=== PATIENT | female | born 1985 | race Caucasian/White ===

== ENCOUNTER 2017-05-20 09:50 | Emergency (ER) | payer MEDICAID ==
[~2017-05-20] VITALS: Ht 160 cm; Wt 86.0 kg
[~2017-05-20 09:50] MED LIST: AZIT250T PO; FLO0.4C PO; HYDR-569 PO; HYDR28CR14 TOP; IBUP-1985 PO; METH-360 PO; NAPR-1154 PO; ONDA4TAB6 PO
[2017-05-20 10:00] VITALS: BP 129/79
[2017-05-20] MEDS ORDERED: CYCL-1 PO (10:18)
== END 2017-05-20 10:46 | disposition home or self-care (01) ==
LOC: ER 09:50
DX: S16.1XXA Strain of muscle, fascia and tendon at neck level, initial encounter (principal); S39.012A Strain of muscle, fascia and tendon of lower back, initial encounter; J45.909 Unspecified asthma, uncomplicated; G89.29 Other chronic pain; Z87.442 Personal history of urinary calculi; Z88.8 Allergy status to other drugs, medicaments and biological substances; Z79.899 Other long term (current) drug therapy; Y08.89XA Assault by other specified means, initial encounter; Y93.89 Activity, other specified; Y92.89 Other specified places as the place of occurrence of the external cause; Y99.8 Other external cause status
CPT/HCPCS: 99283

== ENCOUNTER 2017-06-29 19:03 | Inpatient (IN) | payer MEDICAID ==
[~2017-06-29] VITALS: Ht 160 cm; Wt 91.0 kg
[~2017-06-29 19:03] MED LIST changes: +CYCL-1 PO
[2017-06-29 19:52] LABS: BASOPHILS % (AUTO) 0.3 % (0-1); EOSINOPHILS # (AUTO) 0.3 X10'3 (0-0.9); EOSINOPHILS % (AUTO) 1.7 % (0-6); HEMATOCRIT 40.1 % (35.0-45.0); HEMOGLOBIN 13.9 g/dl (12.0-16.0); LYMPHOCYTES % (AUTO) 5.3 % (21-51); MEAN CORPUSCULAR HEMOGLOBIN 30.7 PG (27.0-31.0); MEAN CORPUSCULAR HGB CONC 34.7 % (33.0-36.5); MEAN CORPUSCULAR VOLUME 88.3 FL (78-98); MEAN PLATELET VOLUME 8.8 FL (7.4-10.4); MONOCYTES # (AUTO) 1.3 X10'3 (0-0.9); MONOCYTES % (AUTO) 7.1 % (2-12); NEUTROPHILS # (AUTO) 15.3 X10'3 (1.8-7.7); NEUTROPHILS % (AUTO) 85.6 % (42-75); PLATELET COUNT 232 X10'3 (140-440); RED BLOOD COUNT 4.54 X10'6 (4.20-5.60); RED CELL DISTRIBUTION WIDTH 12.8 % (11.5-14.5); WHITE BLOOD COUNT 17.9 X10'3 (4.5-11.0)
[2017-06-29 19:54] LABS: CLARITY,URINE TURBID (Clear); COLOR,URINE YELLOW (Yellow); GLUCOSE, URINE NEGATIVE (Neg); KETONES,URINE NEGATIVE (Neg); LEUKOCYTE ESTERASE ,URINE LARGE (Neg); NITRITES, URINE NEGATIVE (Neg); OCCULT BLOOD,URINE SMALL (Neg); PROTEIN,URINE 30 mg/dl (Neg); UROBILINOGEN,URINE 0.2 E.U/dL (0.2-1.0)
[2017-06-29 19:56] LABS: URINE HCG NEGATIVE (NEG)
[2017-06-29 20:04] LABS: UA COLLECTION TYPE CLN CATCH MIDSTREAM
[2017-06-29 20:05] LABS: ALANINE AMINOTRANSFERASE 27 U/L (12-78); ALBUMIN 3.6 G/DL (3.4-5.0); ALBUMIN/GLOBULIN RATIO 0.9 (1.1-1.5); ALKALINE PHOSPHATASE 56 IU/L (46-116); ANION GAP 7 (8-16); ASPARTATE AMINO TRANSFERASE 12 U/L (10-37); BILIRUBIN,TOTAL 0.7 MG/DL (0.1-1.0); BLOOD UREA NITROGEN 13 MG/DL (7-18); BUN/CREATININE RATIO 14.4 (6.6-38.0); CALCIUM 8.9 MG/DL (8.5-10.1); CHLORIDE 104 MMOL/L (99-107); GLUCOSE 144 MG/DL (70-104); POTASSIUM 3.6 MMOL/L (3.5-5.1); SODIUM 140 MMOL/L (135-145); TOTAL CARBON DIOXIDE 28.7 MMOL/L (24-32); TOTAL PROTEIN 7.8 G/DL (6.4-8.2); eGFR 72 ML/MIN
[2017-06-29 20:05] LABS: BACTERIA,URINE 4+ /HPF (Neg); SQUAMOUS EPITHELIAL CELL,UR FEW /LPF (FEW); WBC,URINE TNTC /HPF (0-4)
[2017-06-29 20:11] LABS: INR 0.9 INR; PROTHROMBIN TIME 9.6 SECONDS (9.0-12.0)
[2017-06-29] MEDS ORDERED: CefTRIAXone/D5W-Rocephin 1gm 50 ML IV ONE (20:30)
[2017-06-29] MEDS ORDERED: temazepam 15mg capsule PO PRN (21:00)
[2017-06-29] MEDS ORDERED: ondansetron/PF 4mg/2ml inj IV ONE (21:50)
[2017-06-29] MEDS ORDERED: ketorolac trometh. 30mg/ml inj. IV ONE (22:35)
[2017-06-29] MEDS ORDERED: SPIR50TA3 PO (22:38)
[2017-06-29] MEDS ORDERED: potassium Cl 40MEQ/NS 500ml 500 ML IV PRN ×2 (23:45)
[2017-06-29] MEDS ORDERED: acetaminophen 325mg tablet PO PRN (23:45)
[2017-06-29] MEDS ORDERED: HYDROcodone/acetaminophen 5mg/325mg tablet PO PRN (23:45)
[2017-06-29] MEDS ORDERED: magnesium 4gm in 100ml NS 100 ML IV PRN (23:45)
[2017-06-29] MEDS ORDERED: magnesium hydroxide 30ml (MOM) UD suspension PO PRN (23:45)
[2017-06-29] MEDS ORDERED: magnesium 2GM in 50ml NS 50 ML IV PRN (23:45)
[2017-06-29] MEDS ORDERED: mag hydrox/Alum hydrox/simeth 30ml oral suspension PO PRN (23:45)
[2017-06-29] MEDS ORDERED: potassium Cl 20 mEq SR tablet PO PRN ×2 (23:45)
[2017-06-29] MEDS ORDERED: magnesium Cl slow-release 64mg tablet PO PRN (23:45)
[2017-06-29] MEDS ORDERED: ondansetron/PF 4mg/2ml inj IV PRN (23:45)
[2017-06-30] MEDS: normal saline 1000ml 1,000 ML IV SCH ×4 (00:11→23:45)
[2017-06-30] MEDS: tamsulosin 0.4mg capsule PO SCH ×2 (00:11→21:09)
[2017-06-30 00:30] VITALS: BP 101/53
[2017-06-30 05:27] LABS: HEMATOCRIT 34.4 % (35.0-45.0); HEMOGLOBIN 11.9 g/dl (12.0-16.0); MEAN CORPUSCULAR HEMOGLOBIN 30.4 PG (27.0-31.0); MEAN CORPUSCULAR HGB CONC 34.7 % (33.0-36.5); MEAN CORPUSCULAR VOLUME 87.6 FL (78-98); MEAN PLATELET VOLUME 9.3 FL (7.4-10.4); PLATELET COUNT 196 X10'3 (140-440); RED BLOOD COUNT 3.93 X10'6 (4.20-5.60); RED CELL DISTRIBUTION WIDTH 13.1 % (11.5-14.5); WHITE BLOOD COUNT 16.6 X10'3 (4.5-11.0)
[2017-06-30 06:05] LABS: ALBUMIN 2.9 G/DL (3.4-5.0); ANION GAP 11 (8-16); BLOOD UREA NITROGEN 14 MG/DL (7-18); BUN/CREATININE RATIO 15.7 (6.6-38.0); CALCIUM 8.2 MG/DL (8.5-10.1); CHLORIDE 105 MMOL/L (99-107); CREATININE 0.89 MG/DL (0.40-0.90); GLUCOSE 119 MG/DL (70-104); MAGNESIUM 1.8 MG/DL (1.5-2.4); POTASSIUM 3.7 MMOL/L (3.5-5.1); SODIUM 142 MMOL/L (135-145); TOTAL CARBON DIOXIDE 25.6 MMOL/L (24-32); eGFR 73 ML/MIN
[2017-06-30] MEDS ORDERED: pneumococcal 23-VAL P-sac vacc 25 mcg/0.5ml vial IMVAC ONE (06:30)
[2017-06-30] MEDS: K and/or MAG REPLACEMENT MC SCH (07:40)
[2017-06-30 07:42] VITALS: BP 108/63
[2017-06-30] MEDS ORDERED: CefTRIAXone/D5W-Rocephin 1gm 50 ML IV SCH (08:00)
[2017-06-30] MEDS: acetaminophen 325mg tablet PO PRN (10:06)
[2017-06-30 12:20] VITALS: BP 100/50
[2017-06-30] MEDS ORDERED: normal saline 1000ml 1,000 ML IV ONE ×2 (18:05)
[2017-06-30 19:00] VITALS: BP 110/75
[2017-06-30] MEDS: lactobacillus rhamnosus 10,000 MMU CELLS/CAPSULE PO SCH (21:09)
[2017-06-30] MEDS: HYDROcodone/acetaminophen 10/325mg tab PO PRN (21:15)
[2017-07-01] VITALS: BP 104/70
[2017-07-01] MEDS: normal saline 1000ml 1,000 ML IV SCH ×3 (05:36→23:43)
[2017-07-01] MEDS: HYDROcodone/acetaminophen 10/325mg tab PO PRN (05:36)
[2017-07-01 05:51] LABS: HEMATOCRIT 32.8 % (35.0-45.0); HEMOGLOBIN 11.2 g/dl (12.0-16.0); MEAN CORPUSCULAR HGB CONC 34.2 % (33.0-36.5); MEAN CORPUSCULAR VOLUME 87.9 FL (78-98); MEAN PLATELET VOLUME 9.2 FL (7.4-10.4); PLATELET COUNT 194 X10'3 (140-440); RED BLOOD COUNT 3.73 X10'6 (4.20-5.60); RED CELL DISTRIBUTION WIDTH 12.8 % (11.5-14.5); WHITE BLOOD COUNT 13.5 X10'3 (4.5-11.0)
[2017-07-01 06:03] LABS: ALBUMIN 2.6 G/DL (3.4-5.0); ANION GAP 8 (8-16); BLOOD UREA NITROGEN 7 MG/DL (7-18); CALCIUM 8.3 MG/DL (8.5-10.1); CHLORIDE 105 MMOL/L (99-107); CREATININE 0.78 MG/DL (0.40-0.90); GLUCOSE 117 MG/DL (70-104); MAGNESIUM 1.8 MG/DL (1.5-2.4); POTASSIUM 3.7 MMOL/L (3.5-5.1); SODIUM 138 MMOL/L (135-145); TOTAL CARBON DIOXIDE 25.1 MMOL/L (24-32); eGFR 85 ML/MIN
[2017-07-01 07:19] VITALS: BP 108/74
[2017-07-01] MEDS: K and/or MAG REPLACEMENT MC SCH (08:00)
[2017-07-01] MEDS: lactobacillus rhamnosus 10,000 MMU CELLS/CAPSULE PO SCH ×2 (08:26→20:40)
[2017-07-01] MEDS: acetaminophen 325mg tablet PO PRN (08:31)
[2017-07-01] MEDS ORDERED: butalbital/acetaminophen/caffeine (Fioricet) tablet PO PRN (12:20)
[2017-07-01 12:56] VITALS: BP 103/65
[2017-07-01 19:00] VITALS: BP 102/65
[2017-07-01] MEDS: tamsulosin 0.4mg capsule PO SCH (20:40)
[2017-07-02] VITALS: BP 116/66
[2017-07-02 05:40] LABS: BASOPHILS % (AUTO) 0.3 % (0-1); EOSINOPHILS # (AUTO) 0.2 X10'3 (0-0.9); EOSINOPHILS % (AUTO) 2.2 % (0-6); HEMATOCRIT 31.7 % (35.0-45.0); HEMOGLOBIN 10.9 g/dl (12.0-16.0); LYMPHOCYTES # (AUTO) 2.1 X10'3 (1.1-4.8); LYMPHOCYTES % (AUTO) 24.9 % (21-51); MEAN CORPUSCULAR HEMOGLOBIN 30.2 PG (27.0-31.0); MEAN CORPUSCULAR HGB CONC 34.3 % (33.0-36.5); MEAN CORPUSCULAR VOLUME 88.2 FL (78-98); MEAN PLATELET VOLUME 8.9 FL (7.4-10.4); MONOCYTES % (AUTO) 11.8 % (2-12); NEUTROPHILS # (AUTO) 5.2 X10'3 (1.8-7.7); NEUTROPHILS % (AUTO) 60.8 % (42-75); PLATELET COUNT 211 X10'3 (140-440); RED BLOOD COUNT 3.59 X10'6 (4.20-5.60); RED CELL DISTRIBUTION WIDTH 12.9 % (11.5-14.5); WHITE BLOOD COUNT 8.6 X10'3 (4.5-11.0)
[2017-07-02 06:16] LABS: ALBUMIN 2.5 G/DL (3.4-5.0); ANION GAP 7 (8-16); BLOOD UREA NITROGEN 6 MG/DL (7-18); BUN/CREATININE RATIO 8.3 (6.6-38.0); CALCIUM 8.1 MG/DL (8.5-10.1); CHLORIDE 106 MMOL/L (99-107); CREATININE 0.72 MG/DL (0.40-0.90); GLUCOSE 88 MG/DL (70-104); POTASSIUM 3.9 MMOL/L (3.5-5.1); SODIUM 139 MMOL/L (135-145); TOTAL CARBON DIOXIDE 26.4 MMOL/L (24-32); eGFR > 90 ML/MIN
[2017-07-02 07:32] VITALS: BP 110/62
[2017-07-02] MEDS ORDERED: levoFLOXACIN-Levaquin 750MG/D5 150 ML IV SCH (08:00)
[2017-07-02] MEDS: K and/or MAG REPLACEMENT MC SCH (08:00)
[2017-07-02] MEDS: normal saline 1000ml 1,000 ML IV SCH ×2 (08:28→15:45)
[2017-07-02] MEDS: lactobacillus rhamnosus 10,000 MMU CELLS/CAPSULE PO SCH (08:28)
[2017-07-02] MEDS ORDERED: levoFLOXACIN 250mg tablet PO SCH (11:00)
[2017-07-02 11:30] VITALS: BP 107/71
[2017-07-02] MEDS ORDERED: TAMS0.4C32 PO (16:55)
[2017-07-02] MEDS ORDERED: CIPR-230 PO (16:55)
== END 2017-07-02 17:52 | disposition home or self-care (01) | DRG 463 ==
LOC: ER 19:04 → ED HOLD 23:45 → SUR 3N 23:55
PROVIDERS: ADMIT Family Medicine; ATTEND Family Medicine
DX: N13.6 Pyonephrosis (principal); K76.0 Fatty (change of) liver, not elsewhere classified; E28.2 Polycystic ovarian syndrome; E66.9 Obesity, unspecified; J45.909 Unspecified asthma, uncomplicated; G89.29 Other chronic pain; B96.20 Unspecified Escherichia coli [E. coli] as the cause of diseases classified elsewhere; M54.9 Dorsalgia, unspecified; R00.0 Tachycardia, unspecified; Z68.35 Body mass index [BMI] 35.0-35.9, adult; Z72.0 Tobacco use; Z82.0 Family history of epilepsy and other diseases of the nervous system; Z87.442 Personal history of urinary calculi; Z23 Encounter for immunization
CPT/HCPCS: 36415; 74176; 80048; 80053; 81001; 81025; 83735; 84443; 85025; 85027; 85610; 87070; 87077; 87088; 87186; 90732; 96365; 96375; 99285; J0696; J1885; J2405; J2543; J7030

== ENCOUNTER 2017-09-28 14:07 | Emergency (ER) | payer MEDICAID ==
[~2017-09-28] VITALS: Ht 160 cm; Wt 96.3 kg
[~2017-09-28 14:07] MED LIST changes: -AZIT250T PO; -CYCL-1 PO; -FLO0.4C PO; -HYDR-569 PO; -HYDR28CR14 TOP; -IBUP-1985 PO; -METH-360 PO; -NAPR-1154 PO; -ONDA4TAB6 PO; +SPIR50TA5 PO; +TAMS0.4C32 PO
[2017-09-28] MEDS ORDERED: DIPH1TAB PO (15:16)
[2017-09-28 15:59] VITALS: BP 124/89
== END 2017-09-28 16:01 | disposition home or self-care (01) ==
LOC: ER 14:08
DX: R19.7 Diarrhea, unspecified (principal); R10.84 Generalized abdominal pain; J45.909 Unspecified asthma, uncomplicated; G89.29 Other chronic pain; Z87.442 Personal history of urinary calculi
CPT/HCPCS: 99283

== ENCOUNTER 2017-11-06 12:54 | Emergency (ER) | payer MEDICAID, OTHER ==
[~2017-11-06] VITALS: Ht 160 cm; Wt 97.7 kg
[~2017-11-06 12:54] MED LIST changes: +DIPH1TAB PO
[2017-11-06] MEDS ORDERED: ketorolac trometh. 30mg/ml inj. IV ONE (13:05)
[2017-11-06] MEDS ORDERED: ondansetron/PF 4mg/2ml inj IV ONE (13:05)
[2017-11-06] MEDS ORDERED: normal saline 1000ML IV soln IVB ONE (13:05)
[2017-11-06 13:38] LABS: ALANINE AMINOTRANSFERASE 27 U/L (12-78); ALKALINE PHOSPHATASE 57 IU/L (46-116); ANION GAP 10 (8-16); ASPARTATE AMINO TRANSFERASE 18 U/L (10-37); BILIRUBIN,TOTAL 0.3 MG/DL (0.1-1.0); BLOOD UREA NITROGEN 16 MG/DL (7-18); BUN/CREATININE RATIO 17.4 (6.6-38.0); CALCIUM 9.2 MG/DL (8.5-10.1); CHLORIDE 101 MMOL/L (99-107); CREATININE 0.92 MG/DL (0.40-0.90); GLUCOSE 89 MG/DL (70-104); LIPASE 245 U/L (73-393); POTASSIUM 3.8 MMOL/L (3.5-5.1); SODIUM 142 MMOL/L (135-145); TOTAL CARBON DIOXIDE 30.7 MMOL/L (24-32); TOTAL PROTEIN 7.9 G/DL (6.4-8.2); eGFR 70 ML/MIN
[2017-11-06 13:42] LABS: HEMATOCRIT 38.3 % (35.0-45.0); HEMOGLOBIN 12.8 g/dl (12.0-16.0); LYMPHOCYTES % (AUTO) 32.4 % (21-51); MEAN CORPUSCULAR HGB CONC 33.5 % (33.0-36.5); MEAN CORPUSCULAR VOLUME 89.8 FL (78-98); MEAN PLATELET VOLUME 8.8 FL (7.4-10.4); NEUTROPHILS % (AUTO) 53.7 % (42-75); PLATELET COUNT 325 X10'3 (140-440); RED BLOOD COUNT 4.26 X10'6 (4.20-5.60); RED CELL DISTRIBUTION WIDTH 12.2 % (11.5-14.5); WHITE BLOOD COUNT 6.7 X10'3 (4.5-11.0)
[2017-11-06 13:43] LABS: BASOPHILS % (AUTO) 0.5 % (0-1); EOSINOPHILS # (AUTO) 0.2 X10'3 (0-0.9); EOSINOPHILS % (AUTO) 3 % (0-6); LYMPHOCYTES # (AUTO) 2.2 X10'3 (1.1-4.8); MONOCYTES # (AUTO) 0.7 X10'3 (0-0.9); MONOCYTES % (AUTO) 10.4 % (2-12); NEUTROPHILS # (AUTO) 3.6 X10'3 (1.8-7.7)
[2017-11-06 13:54] LABS: CLARITY,URINE CLEAR (Clear); COLOR,URINE YELLOW (Yellow); GLUCOSE, URINE NEGATIVE (Neg); KETONES,URINE NEGATIVE (Neg); LEUKOCYTE ESTERASE ,URINE NEGATIVE (Neg); NITRITES, URINE NEGATIVE (Neg); OCCULT BLOOD,URINE NEGATIVE (Neg); PROTEIN,URINE NEGATIVE (Neg); UROBILINOGEN,URINE 0.2 E.U/dL (0.2-1.0)
[2017-11-06 13:59] LABS: UA COLLECTION TYPE VOIDED
[2017-11-06 14:02] LABS: URINE HCG NEGATIVE (NEG)
[2017-11-06] MEDS ORDERED: HYDR-569 PO (15:57)
[2017-11-06] MEDS ORDERED: IBUP-1986 PO (15:57)
[2017-11-06 16:40] VITALS: BP 154/86
== END 2017-11-06 16:42 | disposition home or self-care (01) ==
LOC: ER 12:55
DX: R10.2 Pelvic and perineal pain (principal); J45.909 Unspecified asthma, uncomplicated; G89.29 Other chronic pain; Z88.5 Allergy status to narcotic agent; Z79.899 Other long term (current) drug therapy
CPT/HCPCS: 36415; 76856; 80053; 81003; 81025; 83690; 85025; 96361; 96374; 96375; 99285; J1885; J2405; J7030

== ENCOUNTER 2018-08-14 02:02 | Emergency (ER) | payer MEDICAID, OTHER ==
[~2018-08-14] VITALS: Ht 160 cm; Wt 104.0 kg
[~2018-08-14 02:02] MED LIST changes: +HYDR-4383 PO; +IBUP-1986 PO
--- NOTE | 2018-08-14 02:17 | NUR ---
Patient sitting on gurney, reports left jaw pain 8/10. I will continue to monitor.
[2018-08-14] MEDS ORDERED: ketorolac trometh inj. 60 MG/2 ML VIAL IM ONE (03:20)
[2018-08-14] MEDS ORDERED: DOXY100C43 PO (03:21)
[2018-08-14 03:47] VITALS: BP 123/90
== END 2018-08-14 03:47 | disposition home or self-care (01) ==
LOC: ER 02:03
DX: K08.89 Other specified disorders of teeth and supporting structures (principal); G43.909 Migraine, unspecified, not intractable, without status migrainosus; J45.909 Unspecified asthma, uncomplicated; G89.29 Other chronic pain; Z88.6 Allergy status to analgesic agent; Z79.899 Other long term (current) drug therapy
CPT/HCPCS: 96372; 99283; J1885

== ENCOUNTER 2018-11-02 16:22 | Emergency (ER) | payer MEDICAID ==
[~2018-11-02] VITALS: Ht 160 cm; Wt 100.9 kg
[2018-11-02 17:51] VITALS: BP 126/82
== END 2018-11-02 17:54 | disposition home or self-care (01) ==
LOC: ER 16:23
DX: G43.909 Migraine, unspecified, not intractable, without status migrainosus (principal); Z20.811 Contact with and (suspected) exposure to meningococcus; J45.909 Unspecified asthma, uncomplicated; G89.29 Other chronic pain; Z87.442 Personal history of urinary calculi; Z88.6 Allergy status to analgesic agent; Z79.899 Other long term (current) drug therapy
CPT/HCPCS: 99281

== ENCOUNTER 2019-05-09 00:43 | Emergency (ER) | payer MEDICAID, OTHER ==
[~2019-05-09] VITALS: Ht 160 cm; Wt 97.0 kg
[2019-05-09] MEDS ORDERED: normal saline 1000ML IV soln IVB ONE (00:55)
[2019-05-09] MEDS ORDERED: ondansetron/PF 4mg/2ml inj IV ONE (00:55)
[2019-05-09] MEDS ORDERED: ketorolac trometh. 30mg/ml inj. IV ONE (00:55)
[2019-05-09 01:21] LABS: CLARITY,URINE CLEAR (Clear); COLOR,URINE YELLOW (Yellow); GLUCOSE, URINE NEGATIVE (Neg); KETONES,URINE NEGATIVE (Neg); LEUKOCYTE ESTERASE ,URINE NEGATIVE (Neg); NITRITES, URINE NEGATIVE (Neg); OCCULT BLOOD,URINE NEGATIVE (Neg); PROTEIN,URINE NEGATIVE (Neg); URINE HCG NEGATIVE (NEG); UROBILINOGEN,URINE 0.2 E.U/dL (0.2-1.0)
[2019-05-09 01:21] LABS: RED BLOOD COUNT 5.01 X10'6 (4.20-5.60)
[2019-05-09 01:23] LABS: HEMATOCRIT 45.7 % (35.0-45.0); HEMOGLOBIN 15.3 g/dl (12.0-16.0); MEAN CORPUSCULAR HEMOGLOBIN 30.6 PG (27.0-31.0); MEAN CORPUSCULAR HGB CONC 33.6 g/dL (33.0-36.5); MEAN CORPUSCULAR VOLUME 91.1 FL (78-98); MEAN PLATELET VOLUME 9.4 FL (7.4-10.4); PLATELET COUNT 244 X10'3 (140-440); RED CELL DISTRIBUTION WIDTH 13.3 % (11.5-14.5); WHITE BLOOD COUNT 9.8 X10'3 (4.5-11.0)
[2019-05-09 01:26] LABS: UA COLLECTION TYPE CLN CATCH MIDSTREAM
[2019-05-09 01:36] LABS: ALANINE AMINOTRANSFERASE 40 U/L (12-78); ALBUMIN 4.2 G/DL (3.4-5.0); ALKALINE PHOSPHATASE 65 IU/L (46-116); ANION GAP 6 (8-16); ASPARTATE AMINO TRANSFERASE 22 U/L (10-37); BILIRUBIN,TOTAL 0.3 MG/DL (0.1-1.0); BLOOD UREA NITROGEN 14 MG/DL (7-18); BUN/CREATININE RATIO 14.3 (6.6-38.0); CALCIUM 8.8 MG/DL (8.5-10.1); CHLORIDE 106 MMOL/L (99-107); CREATININE 0.98 MG/DL (0.40-0.90); GLUCOSE 113 MG/DL (70-104); LIPASE 310 U/L (73-393); POTASSIUM 3.8 MMOL/L (3.5-5.1); SODIUM 143 MMOL/L (135-145); TOTAL CARBON DIOXIDE 31.3 MMOL/L (24-32); TOTAL PROTEIN 8.3 G/DL (6.4-8.2); eGFR 65 ML/MIN
[2019-05-09 01:48] LABS: TOTAL CELLS COUNTED 100
[2019-05-09 01:50] LABS: PLATELET ESTIMATE NORMAL
[2019-05-09 02:57] VITALS: BP 113/72
[2019-05-09] MEDS ORDERED: ACET-3067 PO (02:58)
[2019-05-09] MEDS ORDERED: ONDA8TAB13 PO (02:58)
[2019-05-09] MEDS ORDERED: PANT-47 PO (02:58)
[2019-05-09] MEDS ORDERED: acetaminophen 325mg tablet PO ONE (03:00)
== END 2019-05-09 03:06 | disposition home or self-care (01) ==
LOC: ER 00:43
DX: K80.20 Calculus of gallbladder without cholecystitis without obstruction (principal); R11.2 Nausea with vomiting, unspecified; J45.909 Unspecified asthma, uncomplicated; G89.29 Other chronic pain; F17.200 Nicotine dependence, unspecified, uncomplicated; Z88.5 Allergy status to narcotic agent; Z79.899 Other long term (current) drug therapy
CPT/HCPCS: 36415; 74176; 80053; 81003; 81025; 83690; 85025; 96361; 96374; 96375; 99284; J1885; J2405; J7030

== ENCOUNTER 2020-04-27 08:42 | Emergency (ER) | payer MEDICAID ==
[~2020-04-27] VITALS: Ht 160 cm; Wt 108.7 kg
[~2020-04-27 08:42] MED LIST changes: +ONDA8TAB13 PO; +PANT-47 PO
[2020-04-27 09:28] VITALS: BP 130/88
== END 2020-04-27 11:44 | disposition home or self-care (01) ==
LOC: ER 08:43
DX: J06.9 Acute upper respiratory infection, unspecified (principal); J02.9 Acute pharyngitis, unspecified; R05 Cough; G43.909 Migraine, unspecified, not intractable, without status migrainosus; J45.909 Unspecified asthma, uncomplicated; G89.29 Other chronic pain; F17.200 Nicotine dependence, unspecified, uncomplicated; Z87.442 Personal history of urinary calculi; Z88.6 Allergy status to analgesic agent; Z79.899 Other long term (current) drug therapy
CPT/HCPCS: 87081; 87880; 99283

== ENCOUNTER 2020-07-07 12:36 | Emergency (ER) | payer MEDICAID, OTHER ==
[~2020-07-07] VITALS: Ht 160 cm; Wt 106.0 kg
[2020-07-07 13:30] VITALS: BP 122/90
[2020-07-07] MEDS ORDERED: acetaminophen 325mg tablet PO ONE (16:00)
[2020-07-07] MEDS ORDERED: ALBU8HFA PO (16:47)
[2020-07-07] MEDS ORDERED: PRED20TA PO (16:47)
== END 2020-07-07 19:18 | disposition home or self-care (01) ==
LOC: ER 12:36
DX: J45.909 Unspecified asthma, uncomplicated (principal); Z20.822 Contact with and (suspected) exposure to COVID-19; R05 Cough; R06.02 Shortness of breath; G43.909 Migraine, unspecified, not intractable, without status migrainosus; G89.29 Other chronic pain; Z87.442 Personal history of urinary calculi; Z88.6 Allergy status to analgesic agent; Z79.899 Other long term (current) drug therapy
CPT/HCPCS: 87635; 99283; C9803

== ENCOUNTER 2021-05-29 20:04 | Inpatient (IN) | payer OTHER ==
[~2021-05-29] VITALS: Ht 160 cm; Wt 113.6 kg
[2021-05-29 20:42] LABS: BASOPHILS % (AUTO) 0.3 % (0-1); EOSINOPHILS # (AUTO) 0.4 X10'3 (0-0.9); EOSINOPHILS % (AUTO) 3.9 % (0-6); HEMATOCRIT 42.7 % (35.0-45.0); HEMOGLOBIN 14.6 g/dl (12.0-16.0); LYMPHOCYTES # (AUTO) 3.4 X10'3 (1.1-4.8); LYMPHOCYTES % (AUTO) 37.6 % (21-51); MEAN CORPUSCULAR HEMOGLOBIN 30.3 PG (27.0-31.0); MEAN CORPUSCULAR HGB CONC 34.2 g/dL (33.0-36.5); MEAN CORPUSCULAR VOLUME 88.4 FL (78-98); MEAN PLATELET VOLUME 9.5 FL (7.4-10.4); MONOCYTES # (AUTO) 0.8 X10'3 (0-0.9); MONOCYTES % (AUTO) 9.2 % (2-12); NEUTROPHILS # (AUTO) 4.5 X10'3 (1.8-7.7); PLATELET COUNT 263 X10'3 (140-440); RED BLOOD COUNT 4.83 X10'6 (4.20-5.60); RED CELL DISTRIBUTION WIDTH 13.6 % (11.5-14.5); WHITE BLOOD COUNT 9.1 X10'3 (4.5-11.0)
[2021-05-29 20:50] LABS: ALANINE AMINOTRANSFERASE 76 U/L (12-78); ALKALINE PHOSPHATASE 69 IU/L (46-116); ANION GAP 9 (8-16); ASPARTATE AMINO TRANSFERASE 26 U/L (10-37); BILIRUBIN,TOTAL 0.3 MG/DL (0.1-1.0); BLOOD UREA NITROGEN 11 MG/DL (7-18); BUN/CREATININE RATIO 12.8 (6.6-38.0); CALCIUM 8.6 MG/DL (8.5-10.1); CHLORIDE 102 MMOL/L (99-107); CREATININE 0.86 MG/DL (0.40-0.90); GLUCOSE 121 MG/DL (70-104); POTASSIUM 3.4 MMOL/L (3.5-5.1); SODIUM 140 MMOL/L (135-145); TOTAL CARBON DIOXIDE 29.2 MMOL/L (24-32); TOTAL PROTEIN 7.9 G/DL (6.4-8.2); eGFR 74 ML/MIN
[2021-05-29 20:54] LABS: LIPASE 291 U/L (73-393)
[2021-05-29 22:06] LABS: URINE HCG NEGATIVE (NEG)
[2021-05-29 22:29] LABS: CLARITY,URINE SLIGHTLY CLOUDY (Clear); COLOR,URINE YELLOW (Yellow); GLUCOSE, URINE NEGATIVE (Neg); KETONES,URINE NEGATIVE (Neg); LEUKOCYTE ESTERASE ,URINE NEGATIVE (Neg); NITRITES, URINE NEGATIVE (Neg); OCCULT BLOOD,URINE NEGATIVE (Neg); PROTEIN,URINE NEGATIVE (Neg); UROBILINOGEN,URINE 0.2 E.U/dL (0.2-1.0)
[2021-05-29 22:32] LABS: UA COLLECTION TYPE VOIDED
[2021-05-29 22:44] LABS: WBC,URINE 0-4 /HPF (0-4)
[2021-05-29 22:45] LABS: BACTERIA,URINE NONE SEEN /HPF (Neg); CAL OXALATE CRYSTALS 3+ /HPF (NEGATIVE); MUCUS STRANDS NONE SEEN /LPF (Neg); RBC,URINE NONE SEEN /HPF (0-2); SQUAMOUS EPITHELIAL CELL,UR FEW /LPF (FEW)
[2021-05-29] MEDS ORDERED: normal saline 1000ML IV soln IVB ONE (23:10)
[2021-05-29] MEDS ORDERED: famotidine/PF 10 mg/ml inj IV ONE (23:10)
[2021-05-29] MEDS ORDERED: ondansetron/PF 4mg/2ml inj IV ONE (23:10)
[2021-05-30] MEDS: proCHLORperazine 10 MG/2 ml inj IV PRN ×2 (00:33→06:03)
[2021-05-30] MEDS ORDERED: fentaNYL/PF 50MCG/1 ML 2ML syringe IV ONE (00:45)
[2021-05-30] MEDS ORDERED: piperacillin/tazo 4.5gm/100ml 100 ML IV ONE (00:50)
--- NOTE | 2021-05-30 00:53 | NUR ---
HOSPITALIST WAS CONTACTED AT 00:54.
[2021-05-30] MEDS ORDERED: magnesium Cl slow-release 64mg tablet PO PRN (01:15)
[2021-05-30] MEDS ORDERED: mag hydrox/Alum hydrox/simeth 30ml oral suspension PO PRN (01:15)
[2021-05-30] MEDS ORDERED: ondansetron/PF 4mg/2ml inj IV PRN (01:15)
[2021-05-30] MEDS ORDERED: potassium CL 10mEq/100ml bag 100 ML IV PRN (01:15)
[2021-05-30] MEDS ORDERED: acetaminophen 325mg tablet PO PRN ×2 (01:15)
[2021-05-30] MEDS: normal saline 1000ml 1,000 ML IV SCH ×3 (01:15→17:02)
[2021-05-30] MEDS ORDERED: morphine 2 MG/ML inj. syringe IV PRN (01:15)
[2021-05-30] MEDS ORDERED: magnesium 4gm in 100ml NS 100 ML IV PRN (01:15)
[2021-05-30] MEDS ORDERED: HYDROcodone/acetaminophen 5mg/325mg tablet PO PRN (01:15)
[2021-05-30] MEDS ORDERED: magnesium 2GM in 50ml NS 50 ML IV PRN (01:15)
[2021-05-30] MEDS ORDERED: HYDROcodone/acetaminophen 10/325mg tab PO PRN (01:15)
[2021-05-30] MEDS ORDERED: potassium Cl 20 mEq SR tablet PO PRN (01:15)
[2021-05-30] MEDS ORDERED: magnesium hydroxide 30ml (MOM) UD suspension PO PRN (01:15)
[2021-05-30] MEDS ORDERED: iohexol 300mg/ml 100ml inj. ONE (01:23)
[2021-05-30] MEDS: morphine 2 MG/ML inj. syringe IV PRN ×3 (03:05→17:00)
[2021-05-30] MEDS ORDERED: NO HOME MEDS (03:25)
[2021-05-30] MEDS: heparin, porcine 5000 units/ml vial SQ SCH ×2 (08:00→20:00)
[2021-05-30] MEDS: K and/or MAG REPLACEMENT MC SCH (08:00)
[2021-05-30 08:15] VITALS: BP 139/95
[2021-05-30 09:58] LABS: POTASSIUM 3.6 MMOL/L (3.5-5.1)
[2021-05-30 10:00] VITALS: BP 133/88
[2021-05-30] MEDS ORDERED: NORMAL SALINE IV ONE (15:55)
[2021-05-30] MEDS ORDERED: SINCALIDE IV ONE (15:55)
[2021-05-30] MEDS: pantoprazole 40MG/NS 100ML BAG 100 ML IV SCH ×2 (17:41→23:51)
[2021-05-30 18:00] VITALS: BP 155/86
--- NOTE | 2021-05-30 18:42 | NUR ---
Problems reprioritized. Patient report given, questions answered & plan of care reviewed with SMITA Suárez.
[2021-05-30] MEDS ORDERED: temazepam 15mg capsule PO PRN (21:00)
[2021-05-30 22:00] VITALS: BP 125/69
[2021-05-31] VITALS (21 sets, daily range): BP systolic 106–164; BP diastolic 54–105
[2021-05-31 06:59] LABS: BASOPHILS % (AUTO) 0.4 % (0-1); EOSINOPHILS # (AUTO) 0.2 X10'3 (0-0.9); EOSINOPHILS % (AUTO) 2.2 % (0-6); HEMATOCRIT 41.1 % (35.0-45.0); HEMOGLOBIN 13.8 g/dl (12.0-16.0); LYMPHOCYTES % (AUTO) 21.1 % (21-51); MEAN CORPUSCULAR HEMOGLOBIN 29.5 PG (27.0-31.0); MEAN CORPUSCULAR HGB CONC 33.5 g/dL (33.0-36.5); MEAN CORPUSCULAR VOLUME 87.9 FL (78-98); MEAN PLATELET VOLUME 9.6 FL (7.4-10.4); MONOCYTES % (AUTO) 10.2 % (2-12); NEUTROPHILS # (AUTO) 6.3 X10'3 (1.8-7.7); NEUTROPHILS % (AUTO) 66.1 % (42-75); PLATELET COUNT 225 X10'3 (140-440); RED BLOOD COUNT 4.68 X10'6 (4.20-5.60); RED CELL DISTRIBUTION WIDTH 13.6 % (11.5-14.5); WHITE BLOOD COUNT 9.5 X10'3 (4.5-11.0)
--- NOTE | 2021-05-31 07:06 | NUR ---
Problems reprioritized. Patient report given, questions answered & plan of care reviewed with EBONY ORDOÑEZ.
--- NOTE | 2021-05-31 07:09 | NUR ---
Patient in room ORTHO 4014. I have received report from Kamini ORDOÑEZ and had the opportunity to ask questions and assume patient care.
[2021-05-31 07:21] LABS: ALANINE AMINOTRANSFERASE 70 U/L (12-78); ALBUMIN 3.5 G/DL (3.4-5.0); ALKALINE PHOSPHATASE 58 IU/L (46-116); ANION GAP 9 (8-16); ASPARTATE AMINO TRANSFERASE 32 U/L (10-37); BILIRUBIN,TOTAL 0.8 MG/DL (0.1-1.0); BLOOD UREA NITROGEN 7 MG/DL (7-18); CALCIUM 7.7 MG/DL (8.5-10.1); CHLORIDE 104 MMOL/L (99-107); CREATININE 0.78 MG/DL (0.40-0.90); GLUCOSE 110 MG/DL (70-104); POTASSIUM 3.3 MMOL/L (3.5-5.1); SODIUM 141 MMOL/L (135-145); TOTAL CARBON DIOXIDE 27.8 MMOL/L (24-32); TOTAL PROTEIN 7.1 G/DL (6.4-8.2); eGFR 83 ML/MIN
[2021-05-31] MEDS: K and/or MAG REPLACEMENT MC SCH ×2 (08:00→20:00)
[2021-05-31] MEDS: heparin, porcine 5000 units/ml vial SQ SCH ×2 (08:00→20:00)
[2021-05-31] MEDS: normal saline 1000ml 1,000 ML IV SCH ×3 (09:15→16:39)
[2021-05-31] MEDS: pantoprazole 40MG/NS 100ML BAG 100 ML IV SCH ×2 (10:15→20:00)
[2021-05-31 11:13] LABS: MAGNESIUM 2.1 MG/DL (1.5-2.4)
[2021-05-31] MEDS: potassium Cl 20 mEq SR tablet PO PRN ×2 (12:04→16:38)
[2021-05-31] MEDS: piperacillin/tazo 4.5gm/100ml 100 ML IV SCH (16:15)
[2021-05-31] MEDS ORDERED: INDOCYANINE GREEN 25 MG/10 ML VIAL IV ONE (17:40)
--- NOTE | 2021-05-31 18:00 | NUR ---
Patient report called to Tiny in OR. BG 77, 2 pieces of jewlery cant be removed. Also, Patient wants MD to be aware family states they have a history of women in family have stopped breathing in surgery. Dr Pierce aware please pass on to anesthsiologist.
[2021-05-31] MEDS ORDERED: BUPIVAcaine 0.5% inj/PF 30 ML ONE (18:07)
--- NOTE | 2021-05-31 18:30 | NUR ---
Patient in room ORTHO 4014. I have received report from PARDEEP and had the opportunity to ask questions and assume patient care. PT DOWN TO OR
--- NOTE | 2021-05-31 18:33 | NUR ---
Problems reprioritized. Patient report given, questions answered & plan of care reviewed with Argelia ORDOÑEZ.
[2021-05-31] MEDS ORDERED: ringers solution, lacted 1,000 ML IV SCH (18:45)
[2021-05-31] MEDS ORDERED: proCHLORperazine 10 MG/2 ml inj IV PRN (18:45)
[2021-05-31] MEDS ORDERED: morphine 4 MG/ML inj SYRINge IV PRN ×2 (18:45→20:30)
[2021-05-31] MEDS ORDERED: ondansetron/PF 4mg/2ml inj IV PRN (18:45)
[2021-05-31] MEDS ORDERED: meperidine/PF 25mg/ml syringe IV PRN ×3 (18:45)
[2021-05-31] MEDS ORDERED: morphine 2 MG/ML inj. syringe IV PRN (18:45)
[2021-05-31] MEDS ORDERED: fentaNYL/PF 50MCG/1 ML 2ML syringe ONE ×2 (18:48→18:57)
[2021-05-31] MEDS ORDERED: midazolam 1 mg/ML 2ml injection ONE (18:48)
[2021-05-31] MEDS ORDERED: BUPIVAcaine 0.5% inj/PF 30 ml vial IJ ONE (19:36)
[2021-05-31] MEDS ORDERED: HYDROcodone/acetaminophen 5mg/325mg tablet PO PRN (20:30)
[2021-05-31] MEDS ORDERED: naloxone 0.4 mg/ml inj IV PRN (20:30)
[2021-05-31] MEDS ORDERED: sugammadex 200mg/2ml injection IV ONE (20:35)
[2021-05-31] MEDS ORDERED: ipratropium/albuterol 3ml nebule NEB STA (20:42)
--- NOTE | 2021-05-31 20:45 | NUR ---
PT ARRIVED TO RR VIA BED ACCOMPANIED BY DR LAST, ANESTHESIA REPORT GIVEN, VSS, DR JOSEPH FUCHS TX-RT PAGED, PT STILL SLEEPY, DENIES PAIN, LAP SITES X 5 - CDI, SCDS ON, 20G PIV'S X 2 TO BILAT UE, RIGHT ONE BEING USED TO INFUSE LR CURRENTLY.
[2021-05-31] MEDS ORDERED: propofol inj 20 ML IV ONE (21:00)
[2021-05-31] MEDS ORDERED: glycopyrrolate 0.2mg/ml inj ONE (21:00)
[2021-05-31] MEDS ORDERED: rocuronium 10mg/ml inj IV ONE (21:00)
[2021-05-31] MEDS ORDERED: dexamethasone sod phosphate 4mg/ml inj. ONE (21:00)
[2021-05-31] MEDS ORDERED: LIDOcaine 2% (20mg/ml) 5ml vial ONE (21:00)
[2021-05-31] MEDS ORDERED: albuterol 60 PUFF/8GM Inhaler IH ONE (21:00)
[2021-05-31] MEDS ORDERED: neostigmine methylsulfate 1 MG/ML 10ml vial ONE (21:00)
[2021-05-31] MEDS ORDERED: ondansetron/PF 4mg/2ml inj ONE (21:00)
[2021-05-31] MEDS ORDERED: phenylephrine 10mg/ml inj. ONE (21:01)
[2021-05-31] MEDS ORDERED: esmolol inj. 10 ML IV ONE (21:01)
[2021-05-31] MEDS ORDERED: acetaminophen 1,000mg/100ml IV 100 ML IV ONE (21:30)
--- NOTE | 2021-05-31 22:20 | NUR ---
PT AWAKE AND PAINFUL WITH MOVEMENT, BUT TOLERATING WELL, VSS, ABLE TO BELCH AT TIMES TO RELIEVE SOME PRESSURE, EDUCATED ON SPLINTING ABD WITH PILLOW, PT USED BED PLASCENCIA BUT HAD LG INCONTINENCE PRIOR-TOTAL BED CHANGE DONE, PT TOLERATED WELL WITH ROLLING.
--- NOTE | 2021-05-31 22:35 | NUR ---
REPORT CALLED TO QUE RN ON ORTHO FLOOR-ALL QUESTIONS ANSWERED, PT VSS, PAIN TOLERABLE, NO CHANGES IN ASSESSMENT, 5 LAP SITES-CDI, LR RUNNING AT 100ML/HR, PT TOLERATING ICE CHIPS, S.O. ACCOMPANIED PT BACK TO RM 4014B, PRIMARY RN IN ROOM TO RECEIVE PT.
--- NOTE | 2021-05-31 22:40 | NUR ---
RECEIVED PT FROM OR FOLLOWING VERBAL REPORT FROM DENISA. ASSUMED CARE OF PT
[2021-06-01] MEDS: morphine 2 MG/ML inj. syringe IV PRN (00:06)
[2021-06-01] MEDS: normal saline 1000ml 1,000 ML IV SCH ×2 (00:07→09:17)
[2021-06-01 00:25] VITALS: BP 146/76
[2021-06-01] MEDS: ceFOXitin inj 1,000 MG in normal saline 100ml IV soln 100 ML IV SCH ×2 (00:49→08:14)
[2021-06-01] MEDS: piperacillin/tazo 4.5gm/100ml 100 ML IV SCH ×2 (01:21→09:36)
[2021-06-01 02:00] VITALS: BP 152/91
[2021-06-01 05:12] LABS: BASOPHILS % (AUTO) 0.1 % (0-1); EOSINOPHILS % (AUTO) 0 % (0-6); HEMATOCRIT 43.3 % (35.0-45.0); HEMOGLOBIN 14.5 g/dl (12.0-16.0); LYMPHOCYTES # (AUTO) 0.6 X10'3 (1.1-4.8); LYMPHOCYTES % (AUTO) 4.7 % (21-51); MEAN CORPUSCULAR HEMOGLOBIN 29.7 PG (27.0-31.0); MEAN CORPUSCULAR HGB CONC 33.4 g/dL (33.0-36.5); MEAN CORPUSCULAR VOLUME 88.7 FL (78-98); MEAN PLATELET VOLUME 9.6 FL (7.4-10.4); MONOCYTES # (AUTO) 0.3 X10'3 (0-0.9); MONOCYTES % (AUTO) 2.1 % (2-12); NEUTROPHILS # (AUTO) 12.4 X10'3 (1.8-7.7); NEUTROPHILS % (AUTO) 93.1 % (42-75); PLATELET COUNT 247 X10'3 (140-440); RED BLOOD COUNT 4.88 X10'6 (4.20-5.60); RED CELL DISTRIBUTION WIDTH 13.4 % (11.5-14.5); WHITE BLOOD COUNT 13.3 X10'3 (4.5-11.0)
[2021-06-01 05:40] LABS: ALANINE AMINOTRANSFERASE 89 U/L (12-78); ALBUMIN 3.7 G/DL (3.4-5.0); ALBUMIN/GLOBULIN RATIO 0.9 (1.1-1.5); ALKALINE PHOSPHATASE 66 IU/L (46-116); ANION GAP 11 (8-16); ASPARTATE AMINO TRANSFERASE 51 U/L (10-37); BILIRUBIN,TOTAL 0.7 MG/DL (0.1-1.0); BLOOD UREA NITROGEN 6 MG/DL (7-18); BUN/CREATININE RATIO 7.9 (6.6-38.0); CALCIUM 8.5 MG/DL (8.5-10.1); CHLORIDE 101 MMOL/L (99-107); CREATININE 0.76 MG/DL (0.40-0.90); GLUCOSE 142 MG/DL (70-104); SODIUM 137 MMOL/L (135-145); TOTAL PROTEIN 7.9 G/DL (6.4-8.2); eGFR 86 ML/MIN
[2021-06-01 06:30] VITALS: BP 154/100
[2021-06-01] MEDS: K and/or MAG REPLACEMENT MC SCH (07:52)
[2021-06-01] MEDS: heparin, porcine 5000 units/ml vial SQ SCH (08:14)
[2021-06-01 08:45] VITALS: BP 130/85
[2021-06-01] MEDS: pantoprazole 40MG/NS 100ML BAG 100 ML IV SCH (09:16)
[2021-06-01 10:00] VITALS: BP 128/80
[2021-06-01] MEDS ORDERED: HYDR-3972 PO (11:57)
--- NOTE | 2021-06-01 13:04 | NUR ---
PT DISCHARGED IN STABLE CONDITION. LEFT FACILITY IN PRIVATE VEHICLE WITH MOM. IV DC CANULA INTACT. FOLLOW UP INSTRUCTIONS GIVEN, ALL QUESTIONS ANSWERED. ALL BELONGINGS IN HAND. Addendum: 06/01/21 at 1305 by Samantha Read RN Amended: Links added.
== END 2021-06-01 13:00 | disposition home or self-care (01) | DRG 419 ==
LOC: ER 20:06 → ED HOLD 05-30 01:19 → ORTHO 4S 05-30 08:20
PROVIDERS: ADMIT Internal Medicine; ATTEND Internal Medicine
PROC: BW211ZZ Computerized Tomography (CT Scan) of Abdomen and Pelvis using Low Osmolar Contrast (ICD-10-PCS; 2021-05-30)
PROC: 8E0W4CZ Robotic Assisted Procedure of Trunk Region, Percutaneous Endoscopic Approach (ICD-10-PCS; 2021-05-31)
PROC: CF1C1ZZ Planar Nuclear Medicine Imaging of Hepatobiliary System, All using Technetium 99m (Tc-99m) (ICD-10-PCS; 2021-05-31)
PROC: 0FT44ZZ Resection of Gallbladder, Percutaneous Endoscopic Approach (ICD-10-PCS; principal; 2021-05-31 18:45)
DX: K80.00 Calculus of gallbladder with acute cholecystitis without obstruction (principal); J45.909 Unspecified asthma, uncomplicated; E28.2 Polycystic ovarian syndrome; E87.6 Hypokalemia; Z20.822 Contact with and (suspected) exposure to COVID-19; G89.29 Other chronic pain; G43.909 Migraine, unspecified, not intractable, without status migrainosus; Z87.442 Personal history of urinary calculi; Z87.11 Personal history of peptic ulcer disease; Z88.6 Allergy status to analgesic agent; Z79.899 Other long term (current) drug therapy
CPT/HCPCS: 99285; Z7506; Z7508; 36415; 71045; 74177; 76700; 78226; 80053; 81001; 81025; 82948; 83605; 83690; 83735; 84132; 84145; 84484; 85025; 87040; 87081; 87635; 93005; 94640; A4215; A4618; A7000; A9537; C9113; G0378; J0131; J0694; J0780; J1100; J1644; J2175; J2250; J2270; J2370; J2405; J2543; J2704; J2710; J3010; J3490; J7030; J7120; Q9967; S0020